=== PATIENT | male | born 2000 | race Caucasian/White ===

== ENCOUNTER 2023-02-22 15:05 | Emergency (ER) | payer SELFPAY ==
[~2023-02-22] VITALS: Ht 167.6 cm; Wt 72.6 kg
[2023-02-22 15:14] VITALS: BP 150/92; PULSE 109; RESP 22; TEMP 98; O2SAT 98
[2023-02-22] MEDS ORDERED: KETOROLAC 30 MG/ML VIAL IM ONE (15:25)
[2023-02-22] MEDS ORDERED: KETOROLAC 30 MG/ML VIAL ONE (17:34)
[2023-02-22] MEDS ORDERED: ACET-2619 PO (18:42)
[2023-02-22] MEDS ORDERED: IBUP-1842 PO (18:42)
[2023-02-22 18:50] VITALS: BP 134/96; PULSE 84; RESP 18; TEMP 98; O2SAT 98
== END 2023-02-22 18:50 | disposition home or self-care (01) ==
LOC: MED 15:05
DX: M25.561 Pain in right knee (principal); M25.521 Pain in right elbow; M25.571 Pain in right ankle and joints of right foot; Z79.899 Other long term (current) drug therapy; V49.88XA Car occupant (driver) (passenger) injured in other specified transport accidents, initial encounter; Y93.89 Activity, other specified; Y92.89 Other specified places as the place of occurrence of the external cause; Y99.8 Other external cause status
CPT/HCPCS: 70450; 73080; 73562; 73610; 96374; 99285; J1885; Q0092